=== PATIENT | female | born 1940 | race Two or more races ===

== ENCOUNTER 2023-01-10 18:11 | Emergency (ER) | payer OTHER ==
[~2023-01-10] VITALS: Ht 142.2 cm; Wt 73.5 kg
[2023-01-10] MEDS ORDERED: OMEPRAZOLE20 MG PO (19:13)
[2023-01-10] MEDS ORDERED: LEVOTHYROXINE88 MCG PO (19:13)
[2023-01-10] MEDS ORDERED: LEVOTHYROXINE100 MCG PO (19:13)
[2023-01-10] MEDS ORDERED: KEPPRA750 MG PO (19:14)
== END 2023-01-10 23:39 | disposition home or self-care (01) ==
LOC: ER 18:11
DX: U07.1 COVID-19 (principal); T50.905A Adverse effect of unspecified drugs, medicaments and biological substances, initial encounter; R50.9 Fever, unspecified